=== PATIENT | female | born 1950 | race Hispanic/Latino ===

== ENCOUNTER 2017-12-18 17:47 | Outpatient (CLI) | payer MEDICARE, BC | END 2017-12-18 17:48 | disposition home or self-care (01) | LOC: BICRAD 17:47 | PROVIDERS: ATTEND Specialist | DX: M25.551 Pain in right hip (principal); M16.11 Unilateral primary osteoarthritis, right hip ==

== ENCOUNTER 2018-01-31 14:24 | Outpatient (CLI) | payer MEDICARE, BC | END 2018-01-31 14:25 | disposition home or self-care (01) | LOC: BICMRI 14:24 | PROVIDERS: ATTEND Neurological Surgery | DX: M51.16 Intervertebral disc disorders with radiculopathy, lumbar region (principal); M70.61 Trochanteric bursitis, right hip; M48.061 Spinal stenosis, lumbar region without neurogenic claudication; M99.83 Other biomechanical lesions of lumbar region; Z98.1 Arthrodesis status; M43.16 Spondylolisthesis, lumbar region | CPT/HCPCS: 72100; 72158; 72195 ==

== ENCOUNTER 2018-10-11 09:36 | Outpatient (CLI) | payer MEDICARE, BC | END 2018-10-11 09:37 | disposition home or self-care (01) | LOC: BICMAMMO 09:36 | PROVIDERS: ATTEND Specialist | DX: Z12.31 Encounter for screening mammogram for malignant neoplasm of breast (principal); R92.1 Mammographic calcification found on diagnostic imaging of breast; Z80.3 Family history of malignant neoplasm of breast | CPT/HCPCS: 77063; 77067 ==

== ENCOUNTER 2019-07-24 10:26 | Outpatient (CLI) | payer MEDICARE, BC ==
--- NOTE | 2019-07-24 11:23 | RAD ---
XR Chest Pa Lat STANDARD HISTORY: severe asthma with eosinophilia. COMPARISON: None FINDINGS: The heart size is normal. The lungs are well expanded without focal areas of consolidation, pneumothorax or pleural effusions. There are degenerative changes in the spine. IMPRESSION: No radiographic evidence of acute cardiopulmonary process.
== END 2019-07-24 10:27 | disposition home or self-care (01) ==
LOC: BICRAD 10:26
PROVIDERS: ATTEND Specialist
DX: J45.50 Severe persistent asthma, uncomplicated (principal); D72.1 Eosinophilia
CPT/HCPCS: 71046

== ENCOUNTER 2021-07-22 14:27 | Outpatient (CLI) | payer MEDICARE, BC | END 2021-07-22 14:28 | disposition home or self-care (01) | LOC: BICRAD 14:27 | PROVIDERS: ATTEND Family Medicine | DX: M25.561 Pain in right knee (principal) ==

== ENCOUNTER 2021-11-28 14:58 | Outpatient (CLI) | payer MEDICARE, BC | END 2021-11-28 14:59 | disposition home or self-care (01) | LOC: BICMAMMO 14:58 | PROVIDERS: ATTEND Specialist | DX: Z12.31 Encounter for screening mammogram for malignant neoplasm of breast (principal); Z80.3 Family history of malignant neoplasm of breast | CPT/HCPCS: 77063; 77067 ==